=== PATIENT | male | born 1975 | race Caucasian/White ===

== ENCOUNTER 2018-02-23 15:41 | Emergency (ER) | payer SELFPAY ==
[~2018-02-23] VITALS: Ht 165.1 cm; Wt 54.0 kg
[2018-02-23 16:44] LABS: BASOPHILS % 0.6 % (0.0-2.0); EOSINOPHILS % 2.1 % (0.0-5.0); HEMATOCRIT. 37.9 % (42.0-52.0); HEMOGLOBIN. 12.6 g/dL (14.0-18.0); LYMPHOCYTES % 25.9 % (20.0-50.0); MEAN CORPUSCULAR HEMOGLOBIN 26.5 pg (28.0-32.0); MEAN CORPUSCULAR VOLUME 79.7 fL (80.0-94.0); MEAN PLATELET VOLUME 7.2 fl (7.4-10.4); NEUTROPHILS % 63.4 % (40.0-76.0); PLATELET 310 x1000/uL (130-400); RED BLOOD CELL COUNT 4.75 mill/uL (4.7-6.1); RED CELL DISTRIBUTION WIDTH 14.6 % (11.6-14.6)
[2018-02-23 16:50] LABS: CHLORIDE 102 mEq/L (98-107)
[2018-02-23 16:53] LABS: ETHANOL BLOOD < 10 mg/dL
[2018-02-23] MEDS ORDERED: NALOXONE HCL 0.4 MG/ML 1ML VIAL IV ONE (17:15)
[2018-02-23 20:59] LABS: CLARITY URINE CLEAR (CLEAR); COLOR URINE YELLOW (YELLOW); KETONES URINE NEGATIVE (NEGATIVE); LEUKOCYTE ESTERASE URINE NEGATIVE (NEGATIVE); NITRITE URINE NEGATIVE (NEGATIVE); OCCULT BLOOD URINE TRACE (NEGATIVE); PROTEIN URINE TRACE (NEGATIVE); UROBILINOGEN URINE 0.2 E.U./dL (0.2-1.0)
[2018-02-23 21:10] LABS: *AMPHETAMINES SCREEN URINE NEGATIVE (NEGATIVE); *BARBITURATES SCREEN URINE NEGATIVE (NEGATIVE); *BENZODIAZEPINES SCREEN URINE NEGATIVE (NEGATIVE); *COCAINE SCREEN URINE PRESUMTIVE POSITIVE (NEGATIVE); CANNABINOID URINE SCREEN NEGATIVE (NEGATIVE); METHADONE URINE SCREEN NEGATIVE (NEGATIVE); OPIATES URINE SCREEN NEGATIVE (NEGATIVE); PHENCYCLIDINE URINE SCREEN NEGATIVE (NEGATIVE)
[2018-02-23] MEDS ORDERED: NALOXONE HCL 1 MG/ML 2ML VIAL ONE (21:41)
[2018-02-23 23:03] VITALS: BP 105/62
[2018-02-24] MEDS ORDERED: ACETAMINOPHEN 325MG TABLET PO PRN
[2018-02-24] MEDS ORDERED: ONDANSETRON HCL 4MG/2ML VIAL IV PRN
[2018-02-24] MEDS ORDERED: DIPHENHYDRAMINE 50MG/ML VIAL IV PRN
[2018-02-24] MEDS ORDERED: MAGNESIUM/ALUMINUM HYDROXIDE/SIMETHICONE 30ML UDC PO PRN
[2018-02-24] MEDS ORDERED: SODIUM CHLORIDE 0.9% INJ 3ML FLUSH IVF SCH (06:00)
== END 2018-02-23 23:06 | disposition left against medical advice (07) ==
LOC: EDBD → ER 16:00 → CANBEDREQ 23:35
DX: T40.601A Poisoning by unspecified narcotics, accidental (unintentional), initial encounter (principal); G93.40 Encephalopathy, unspecified; F17.200 Nicotine dependence, unspecified, uncomplicated; F19.10 Other psychoactive substance abuse, uncomplicated; Y92.89 Other specified places as the place of occurrence of the external cause
CPT/HCPCS: 36415; 80053; 80305; 80307; 80329; 81003; 82962; 85025; 96374; 99291; G0482; J2310; Z7610

== ENCOUNTER 2018-02-24 04:34 | Inpatient (IN) | payer MEDICAID ==
[~2018-02-24] VITALS: Ht 165.1 cm; Wt 52.6 kg
[2018-02-24] MEDS ORDERED: SODIUM CHLORIDE 0.9% 1,000 ML IV ONE (11:11)
[2018-02-24 12:44] LABS: BASOPHILS % 0.2 % (0.0-2.0); EOSINOPHILS % 1.3 % (0.0-5.0); HEMATOCRIT. 37.6 % (42.0-52.0); HEMOGLOBIN. 12.6 g/dL (14.0-18.0); LYMPHOCYTES % 20.5 % (20.0-50.0); MEAN CORPUSCULAR HEMOGLOBIN 26.9 pg (28.0-32.0); MEAN CORPUSCULAR VOLUME 80.2 fL (80.0-94.0); MONOCYTES % 8.8 % (2.0-8.0); NEUTROPHILS % 69.2 % (40.0-76.0); PLATELET 296 x1000/uL (130-400); RED BLOOD CELL COUNT 4.69 mill/uL (4.7-6.1); RED CELL DISTRIBUTION WIDTH 15.2 % (11.6-14.6)
[2018-02-24 12:54] LABS: CHLORIDE 102 mEq/L (98-107); ETHANOL BLOOD < 10 mg/dL
[2018-02-24 12:56] LABS: AMMONIA 36 uMol/L (<32)
[2018-02-24 12:58] LABS: INR 1.1; PARTIAL THROMBOPLASTIN TIME 23.8 sec (23.4-31.0); PROTHROMBIN TIME 11.3 sec (9.4-11.6)
[2018-02-24] MEDS ORDERED: ASPIRIN 325MG EC TABLET PO ONE (13:30)
[2018-02-24 15:33] LABS: CLARITY URINE CLEAR (CLEAR); COLOR URINE YELLOW (YELLOW); KETONES URINE NEGATIVE (NEGATIVE); LEUKOCYTE ESTERASE URINE NEGATIVE (NEGATIVE); NITRITE URINE NEGATIVE (NEGATIVE); OCCULT BLOOD URINE 2+ (NEGATIVE); PROTEIN URINE NEGATIVE (NEGATIVE); SPECIFIC GRAVITY URINE 1.017 (1.005-1.030); UROBILINOGEN URINE 0.2 E.U./dL (0.2-1.0)
[2018-02-24 15:47] LABS: *AMPHETAMINES SCREEN URINE NEGATIVE (NEGATIVE); *BARBITURATES SCREEN URINE NEGATIVE (NEGATIVE); *BENZODIAZEPINES SCREEN URINE NEGATIVE (NEGATIVE); *COCAINE SCREEN URINE PRESUMTIVE POSITIVE (NEGATIVE); METHADONE URINE SCREEN NEGATIVE (NEGATIVE); OPIATES URINE SCREEN NEGATIVE (NEGATIVE); PHENCYCLIDINE URINE SCREEN NEGATIVE (NEGATIVE)
[2018-02-24 15:48] LABS: CANNABINOID URINE SCREEN NEGATIVE (NEGATIVE)
[2018-02-24] MEDS ORDERED: HYDROCODONE/ACETAMINOPHEN 10/325MG TABLET PO PRN (16:45)
[2018-02-24] MEDS ORDERED: ONDANSETRON HCL 4MG/2ML VIAL IV PRN (16:45)
[2018-02-24] MEDS ORDERED: DOCUSATE SODIUM 100MG CAPSULE PO PRN (16:45)
[2018-02-24] MEDS ORDERED: LORAZEPAM 0.5MG TABLET PO PRN (16:45)
[2018-02-24] MEDS ORDERED: ACETAMINOPHEN 650MG SUPP PR PRN (16:45)
[2018-02-24] MEDS ORDERED: DIPHENHYDRAMINE 50MG/ML VIAL IV PRN (16:45)
[2018-02-24] MEDS ORDERED: MAGNESIUM/ALUMINUM HYDROXIDE/SIMETHICONE 30ML UDC PO PRN (16:45)
[2018-02-24] MEDS ORDERED: CLONIDINE 0.1MG TABLET PO PRN (16:45)
[2018-02-24] MEDS ORDERED: GUAIFENESIN 200MG/10ML SUGAR FREE UDC PO PRN (16:45)
[2018-02-24] MEDS ORDERED: ACETAMINOPHEN 325MG TABLET PO PRN (16:45)
[2018-02-24] MEDS ORDERED: ACETAMINOPHEN 650MG/20.3ML UDC GT PRN (16:45)
[2018-02-24] MEDS ORDERED: HYDROCODONE/ACETAMINOPHEN 5/325MG TABLET PO PRN (16:45)
[2018-02-24] MEDS ORDERED: NA PHOS,M-B/NA PHOS,DI-BA ENEMA 118ML PR PRN (16:45)
[2018-02-24] MEDS ORDERED: DEXT 5%/0.45% NACL 1000ML 1,000 ML IV SCH (17:01)
[2018-02-24] MEDS: THIAMINE HCL 100MG TABLET PO SCH (17:50)
[2018-02-24] MEDS: MULTIVITAMINS,THER W-MINERALS TABLET PO SCH (17:54)
[2018-02-24] MEDS ORDERED: LACTULOSE 20G/30ML UDC PO SCH (22:00)
[2018-02-24 23:00] VITALS: BP 116/71
[2018-02-24 23:30] VITALS: BP 116/71
[2018-02-24] MEDS: LACTULOSE 20G/30ML UDC PO SCH (23:30)
[2018-02-25 05:20] VITALS: BP 113/77
[2018-02-25] MEDS: LACTULOSE 20G/30ML UDC PO SCH ×2 (05:47→09:04)
[2018-02-25 06:02] LABS: AMMONIA 37 uMol/L (<32)
[2018-02-25 07:28] LABS: BASOPHILS % 0.6 % (0.0-2.0); EOSINOPHILS % 1.6 % (0.0-5.0); LYMPHOCYTES % 44.8 % (20.0-50.0); MEAN CORPUSCULAR HEMOGLOBIN 26.5 pg (28.0-32.0); MEAN CORPUSCULAR VOLUME 79.8 fL (80.0-94.0); MEAN PLATELET VOLUME 7.5 fl (7.4-10.4); MONOCYTES % 10.1 % (2.0-8.0); NEUTROPHILS % 42.9 % (40.0-76.0); PLATELET 245 x1000/uL (130-400); RED BLOOD CELL COUNT 3.98 mill/uL (4.7-6.1); RED CELL DISTRIBUTION WIDTH 14.5 % (11.6-14.6)
[2018-02-25 07:42] LABS: HEMATOCRIT. 31.7 % (42.0-52.0); HEMOGLOBIN. 10.6 g/dL (14.0-18.0)
[2018-02-25 07:56] VITALS: BP 120/77
[2018-02-25] MEDS ORDERED: FOLIC ACID 1MG TABLET PO SCH (09:00)
[2018-02-25] MEDS: MULTIVITAMINS,THER W-MINERALS TABLET PO SCH (09:04)
[2018-02-25] MEDS: THIAMINE HCL 100MG TABLET PO SCH (09:04)
[2018-02-25 09:20] LABS: CHLORIDE 101 mEq/L (98-107)
[2018-02-25 09:27] LABS: PHOSPHORUS 3.4 mg/dL (2.5-4.9)
[2018-02-25] MEDS ORDERED: GADOBENATE DIMEGLUMINE 529 MG/ML 10ML IV ONE (09:30)
[2018-02-25 12:08] VITALS: BP 113/78
[2018-02-25 13:30] VITALS: BP 120/74
== END 2018-02-25 13:43 | disposition home or self-care (01) | DRG 48 ==
LOC: ER 04:39 → EDBD 04:39 → 6WST 19:52 → ENRESERV 19:52 → 6WST 22:53
PROVIDERS: ADMIT Internal Medicine; ATTEND Internal Medicine
DX: G90.8 Other disorders of autonomic nervous system (principal); G92 Toxic encephalopathy; E72.20 Disorder of urea cycle metabolism, unspecified; F14.10 Cocaine abuse, uncomplicated; F17.210 Nicotine dependence, cigarettes, uncomplicated; J44.9 Chronic obstructive pulmonary disease, unspecified; Z60.2 Problems related to living alone; Z86.73 Personal history of transient ischemic attack (TIA), and cerebral infarction without residual deficits; Z79.899 Other long term (current) drug therapy
CPT/HCPCS: 36415; 70450; 70553; 71045; 80053; 80305; 80307; 80329; 81003; 82140; 83735; 84100; 84484; 85025; 85610; 85730; 86850; 86900; 93005; 93306; 93880; 96360; 96361; 99285; A9577; G0482; J1200; J7030

== ENCOUNTER 2024-05-17 12:57 | Emergency (ER) | payer MEDICAID ==
[~2024-05-17] VITALS: Ht 167.6 cm; Wt 69.0 kg
[2024-05-17 13:00] VITALS: O2SAT 98
[2024-05-17] MEDS: MORPHINE SULFATE 4 MG/ML INJ (FOR IV/IM USE) IV STA (13:55)
[2024-05-17] MEDS: SODIUM CHLORIDE 0.9% 1,000 ML IV ONE (13:55)
[2024-05-17] MEDS: ONDANSETRON HCL 4MG/2ML INJ IV STA (13:55)
[2024-05-17 14:23] LABS: BASOPHILS % 0.5 % (0.0-2.0); DIFFERENTIAL COMMENT 0; EOSINOPHILS % 0.3 % (0.0-5.0); HEMATOCRIT. 25.3 % (42.0-52.0); HEMOGLOBIN. 8.4 g/dL (14.0-18.0); MEAN CORPUSCULAR HEMOGLOBIN 25.2 pg (28.0-32.0); MEAN CORPUSCULAR HGB CONC 33.1 g/dL (31.0-37.0); MEAN CORPUSCULAR VOLUME 76.2 fL (80.0-94.0); MEAN PLATELET VOLUME 6.5 fl (7.4-10.4); MONOCYTES % 5.2 % (2.0-8.0); PLATELET 341 x1000/uL (130-400); RED BLOOD CELL COUNT 3.32 mill/uL (4.7-6.1); WHITE BLOOD COUNT 5.6 x1000/uL (4.5-11.0)
[2024-05-17 14:29] LABS: CHLORIDE 105 mEq/L (98-107); POTASSIUM 4.3 mEq/L (3.5-5.1); SODIUM 137 mEq/L (136-145)
[2024-05-17 14:30] LABS: CALCIUM 8.9 mg/dL (8.7-10.4); CARBON DIOXIDE 26 mEq/L (21-32)
[2024-05-17 14:34] LABS: PARTIAL THROMBOPLASTIN TIME 24.2 sec (23.4-31.0); PROTHROMBIN TIME 11.5 sec (9.6-11.0)
[2024-05-17 14:35] LABS: CREATININE 0.9 mg/dL (0.6-1.3); GLUCOSE 104 mg/dL (70-105); UREA NITROGEN BLOOD 7 mg/dL (9-23)
[2024-05-17 14:36] LABS: TROPONIN I HIGH SENSITIVITY 17 ng/L (3.0-53)
[2024-05-17 14:37] LABS: ALANINE AMINOTRANSFERASE 20 IU/L (10-49); ALBUMIN 4.4 g/dL (3.2-4.8); ASPARTATE AMINOTRANSFERASE 22 IU/L (<34); BILIRUBIN TOTAL 0.3 mg/dL (0.1-1.0); ETHANOL BLOOD < 10 mg/dL (<10); PROTEIN TOTAL 6.4 g/dL (6.0-8.3)
[2024-05-17 17:06] LABS: TROPONIN I HIGH SENSITIVITY 18 ng/L (3.0-53)
[2024-05-17 17:16] LABS: CLARITY URINE CLEAR (CLEAR); COLOR URINE YELLOW (YELLOW); GLUCOSE URINE 3+ (NEGATIVE); KETONES URINE NEGATIVE (NEGATIVE); LEUKOCYTE ESTERASE URINE NEGATIVE (NEGATIVE); NITRITE URINE NEGATIVE (NEGATIVE); OCCULT BLOOD URINE NEGATIVE (NEGATIVE); PH URINE 7.5 (4.5-8.0); PROTEIN URINE NEGATIVE (NEGATIVE); SPECIFIC GRAVITY URINE 1.017 (1.005-1.030); UROBILINOGEN URINE 0.2 E.U./dL (0.2-1.0)
[2024-05-17 17:22] LABS: *AMPHETAMINES SCREEN URINE NEGATIVE (NEGATIVE); *BARBITURATES SCREEN URINE NEGATIVE (NEGATIVE); *BENZODIAZEPINES SCREEN URINE NEGATIVE (NEGATIVE); *COCAINE SCREEN URINE NEGATIVE (NEGATIVE); METHADONE URINE SCREEN NEGATIVE (NEGATIVE); OPIATES URINE SCREEN PRESUMPTIVE POSITIVE (NEGATIVE)
[2024-05-17 17:23] LABS: CANNABINOID URINE SCREEN NEGATIVE (NEGATIVE); ECSTASY MDMA SCREEN URINE NEGATIVE (NEGATIVE); PHENCYCLIDINE URINE SCREEN NEGATIVE (NEGATIVE)
[2024-05-17 17:44] LABS: BACTERIA URINE TRACE
[2024-05-17 17:45] LABS: RBC URINE NONE SEEN /hpf (0-2); SQUAMOUS EPITHELIAL CELL URINE FEW /lpf (RARE/1+); WBC URINE 0-2 /hpf (0-2)
[2024-05-17] MEDS ORDERED: TAMS-11 MT (19:13)
[2024-05-17] MEDS ORDERED: IBUP-2028 MT (19:13)
[2024-05-17] MEDS ORDERED: HYDR-4001 MT (19:13)
[2024-05-17 19:30] VITALS: TEMP 97.4
[2024-05-17 19:47] VITALS: BP 110/80; PULSE 61; RESP 16
[2024-05-17] MEDS: KETOROLAC 30MG/ML VIAL IV ONE (19:47)
[2024-05-17] MEDS: ONDANSETRON HCL 4MG/2ML INJ IV ONE (19:47)
== END 2024-05-17 19:50 | disposition home or self-care (01) ==
LOC: ER 12:57
DX: R07.9 Chest pain, unspecified (principal); R10.9 Unspecified abdominal pain; I10 Essential (primary) hypertension
CPT/HCPCS: 80053; 80305; 81003; 80320; 83880; 83690; 83735; 85025; 85610; 85730; 84484; 36415; 71045; 74176; 93005; 96361; 96374; 96375; 96376; 99285; J1885; J2405; J2270; J7030; Z7610; G0480